=== PATIENT | female | born 1965 | race African-American/Black ===

== ENCOUNTER 2016-10-19 14:33 | Emergency (ER) | payer OTHER ==
[~2016-10-19] VITALS: Ht 157.5 cm; Wt 92.0 kg
[~2016-10-19 14:33] MED LIST: ASPI-556 PO; METF500T4 PO
[2016-10-19 14:47] LABS: GLUCOSE,POINT OF CARE 274 MG/DL (70-110)
[2016-10-19] MEDS ORDERED: 0.9% SODIUM CHLORIDE 10 ML SYRINGE IVP PRN (15:45)
[2016-10-19] MEDS ORDERED: SODIUM CHLORIDE 0.9% 1,000 ML IV ONE (16:00)
[2016-10-19 16:07] LABS: EOSINOPHILS % (AUTO) 0 % (1.0-6.0); HEMATOCRIT 39.8 % (36-46); HEMOGLOBIN 13.3 g/dL (12.0-16.0); LYMPHOCYTES # (AUTO) 2.2 K/uL (1.0-4.8); LYMPHOCYTES % (AUTO) 17.3 % (22.0-44.0); MEAN CORPUSCULAR HEMOGLOBIN 30.4 pg (26.0-34.0); MEAN CORPUSCULAR HGB CONC 33.5 G/dL (31.0-37.0); MEAN CORPUSCULAR VOLUME 91 fL (80-100); MONOCYTES # (AUTO) 0.8 K/uL (0.1-1.0); MONOCYTES % (AUTO) 6.4 % (2.0-9.0); NEUTROPHILS # (AUTO) 9.5 K/uL (1.8-7.7); NEUTROPHILS % (AUTO) 76.3 % (40.0-70.0); PLATELET COUNT (AUTO) 266 K/uL (150-450); RED CELL DISTRIBUTION WIDTH 13.8 % (11.5-14.5); WHITE BLOOD COUNT (AUTO) 12.4 K/uL (4.5-11.0)
[2016-10-19 16:29] LABS: CALCIUM, TOTAL 9.3 mg/dL (8.8-10.5); CREATININE 1.2 mg/dL (0.60-1.30); POTASSIUM 3.3 mmol/L (3.5-5.1)
[2016-10-19 16:42] LABS: BILIRUBIN,TOTAL 0.6 mg/dL (0.1-1.0); TOTAL PROTEIN, SERUM 8.6 g/dL (6.4-8.2)
[2016-10-19] MEDS ORDERED: LEVOFLOXACIN 750 MG/D5% WATER 150 ML IV ONE (17:00)
[2016-10-19] MEDS ORDERED: IBUPROFEN 800 MG TABLET PO ONE (18:30)
[2016-10-19 18:55] VITALS: BP 136/82
== END 2016-10-19 19:40 | disposition home or self-care (01) ==
LOC: EMS 14:35 → EEVIPCON 14:35 → EMS 18:57
DX: J18.9 Pneumonia, unspecified organism (principal); E11.9 Type 2 diabetes mellitus without complications; I10 Essential (primary) hypertension; Z87.891 Personal history of nicotine dependence; Z79.82 Long term (current) use of aspirin
CPT/HCPCS: 36415; 71010; 80053; 82962; 83605; 85025; 87040; 96365; 96366; 99285; J1956; J7030

== ENCOUNTER 2016-10-20 15:02 | Emergency (ER) | payer OTHER ==
[~2016-10-20] VITALS: Ht 157.5 cm; Wt 90.9 kg
[2016-10-20 15:22] LABS: GLUCOSE,POINT OF CARE 166 MG/DL (70-110)
[2016-10-20 16:08] VITALS: BP 144/83
== END 2016-10-20 16:49 | disposition home or self-care (01) ==
LOC: EMS 15:04
DX: J18.9 Pneumonia, unspecified organism (principal); E11.9 Type 2 diabetes mellitus without complications; I10 Essential (primary) hypertension; Z87.891 Personal history of nicotine dependence
CPT/HCPCS: 82962; 99283

== ENCOUNTER 2016-12-05 15:17 | Emergency (ER) | payer OTHER ==
[~2016-12-05] VITALS: Ht 157.5 cm; Wt 92.3 kg
[2016-12-05 15:32] LABS: GLUCOSE,POINT OF CARE 152 MG/DL (70-110)
[2016-12-05] MEDS ORDERED: HYDROCODONE/ACETAMINOPHEN 5-325 MG TABLET PO ONE (16:15)
[2016-12-05] MEDS ORDERED: IBUPROFEN 600 MG TABLET PO ONE (16:15)
[2016-12-05 17:57] VITALS: BP 138/82
== END 2016-12-05 18:18 | disposition home or self-care (01) ==
LOC: EMS 15:19
DX: M25.511 Pain in right shoulder (principal); M54.6 Pain in thoracic spine; E11.9 Type 2 diabetes mellitus without complications; I10 Essential (primary) hypertension; Z79.82 Long term (current) use of aspirin; Z87.891 Personal history of nicotine dependence; V49.50XA Passenger injured in collision with unspecified motor vehicles in traffic accident, initial encounter; Y93.89 Activity, other specified; Y92.89 Other specified places as the place of occurrence of the external cause; Y99.8 Other external cause status
CPT/HCPCS: 72040; 72072; 82962; 99284

== ENCOUNTER 2018-05-21 09:29 | Day surgery (SDC) | payer OTHER ==
[~2018-05-21] VITALS: Ht 157.5 cm; Wt 86.4 kg
[~2018-05-21 09:29] MED LIST changes: +AMLO-512 PO; +ATEN50TA PO; +ATOR10TA84 PO; +HYDR-4031 PO; +HYDR25TA PO; +LISI-662 PO; +METF-960 PO; -METF500T4 PO; +PARO20TA24 PO
[2018-05-21] MEDS ORDERED: 0.9% SODIUM CHLORIDE 10 ML SYRINGE IVP PRN (09:30)
[2018-05-21] MEDS ORDERED: METOPROLOL TARTRATE 50 MG TABLET PO PRN (09:30)
[2018-05-21 10:34] LABS: ANION GAP 11 mmol/L (8-16); CALCIUM, TOTAL 9.7 mg/dL (8.8-10.5); CARBON DIOXIDE 27 mmol/L (22-29); CHLORIDE 102 mmol/L (98-107); GLOMERULAR FILTR. RATE CALC > 60 mL/min (>60); GLUCOSE,RANDOM 123 mg/dL (70-110); POTASSIUM 3.5 mmol/L (3.5-5.1); SODIUM SERUM 140 mmol/L (136-145); UREA NITROGEN, BLOOD 16 mg/dL (7-18)
[2018-05-21] MEDS ORDERED: NITROGLYCERIN 400 MCG/SUBLINGUAL SPRAY 4.9 GM BOTTLE SL ONE ×2 (10:41→11:06)
[2018-05-21] MEDS ORDERED: METOPROLOL TARTRATE 5 MG/5 ML VIAL ONE (10:41)
[2018-05-21] MEDS ORDERED: IOVERSOL 350 MG/ML 150 ML VIAL ONE (10:55)
[2018-05-21] MEDS ORDERED: SODIUM CHLORIDE 0.9% 100 ML ONE (10:55)
== END 2018-05-21 11:50 | disposition home or self-care (01) ==
LOC: SURGERY 09:29 → EDSTATUS 11:00 → SURGERY 11:50
PROVIDERS: ATTEND Internal Medicine Cardiovascular Disease
DX: R07.89 Other chest pain (principal); I10 Essential (primary) hypertension; E11.9 Type 2 diabetes mellitus without complications; E78.5 Hyperlipidemia, unspecified; F41.9 Anxiety disorder, unspecified; F41.0 Panic disorder [episodic paroxysmal anxiety]; Z87.01 Personal history of pneumonia (recurrent); Z79.899 Other long term (current) drug therapy; Z98.890 Other specified postprocedural states
CPT/HCPCS: 36415; 75574; 80048; J7050; Q9967; J3490